=== PATIENT | female | born 1985 | race Caucasian/White ===

== ENCOUNTER 2018-05-05 18:13 | Emergency (ER) | payer OTHER, MEDICAID, SELFPAY ==
--- NOTE | 2018-05-05 18:23 | ED_ITS ---
HPI - General Adult General Chief complaint: Abdominal Pain Stated complaint: states sharp pain in right flank Time Seen by Provider: 05/05/18 18:22 Source: patient Mode of arrival: ambulatory Limitations: no limitations History of Present Illness HPI narrative: Patient is a 32-year-old female here for evaluation of right upper quadrant and right CVA tenderness. She states that it started a couple days ago. Has worsened over the past couple days. Does get worse with palpation. Does not seem to change with eating or bowel movements or urination. She has never had a kidney stone before. No rashes. No fevers. Has no dysuria. Is nauseous but no vomiting. Related Data Previous Rx's Medication Instructions Recorded promethazine 25 mg PO Q4-6H PRN #10 tab 05/05/18 sulfamethoxazole-trimethoprim 1 tab PO BID #28 tab 05/05/18 [Bactrim DS] Allergies Allergy/AdvReac Type Severity Reaction Status Date / Time No Known Drug Allergies Allergy Verified 05/05/18 18:42 Review of Systems Constitutional Denies fever(s) and Denies headache(s) ENT Ears, Nose, Mouth, and Throat: Denies headache(s) Cardiovascular Denies chest pain and Denies dyspnea Respiratory Denies dyspnea Gastrointestinal Gastrointestinal: Reports abdominal pain, Denies change in bowel habits, Denies change in stool character, Denies constipation, Denies diarrhea, Reports nausea and Denies vomiting Genitourinary Denies dysuria and Denies vaginal discharge Musculoskeletal Denies myalgias and Denies arthralgias Integumentary/Breasts Denies rash Neurologic Denies headache(s) Hematologic/Lymphatic Comments: Not on anticoagulation COUNTS INCLUDE 234 BEDS AT THE [facility] Medical History H/O: hysterectomy (Acute) Healthy adult (Acute) Surgical History Status post dilation and curettage (07/06/15) Social History Smoking Status: Current every day smoker Exam Initial Vital Signs Initial Vital Signs: Vital Signs Temperature 98.6 F 05/05/18 18:25 Pulse Rate 82 05/05/18 18:25 Respiratory Rate 18 05/05/18 18:25 Blood Pressure 149/80 H 05/05/18 18:25 Pulse Oximetry 100 05/05/18 18:25 Const General: cooperative, healthy appearing, comfortable, well developed, well groomed and No acute distress Orientation: alert, awake and oriented x3 HENMT Head: normal to inspection and normocephalic Resp Effort & Inspection: normal respiratory effort and able to speak in complete sentences Cardio Rate: regular rate Rhythm: regular rhythm GI Inspection: non-distended Palpation: soft, No firm and tender (Right upper quadrant.) Back/Spine/Pelvis Back: CVA tenderness right Skin Lesions: no lesions Rashes: no rashes Neuro General: alert and oriented x3 Cognition: normal cognition Speech: speech normal Extrem General: normal to inspection and capillary refill normal Psych Appearance: grossly normal and well kempt Course Orders Ordered: ED Orders 05/05/18 18:35 Urine Microscopic Stat 05/05/18 18:39 US abdomen complete Stat 05/05/18 18:45 Complete Blood Count AUTO DIFF Stat Comprehensive Metabolic Panel Stat Lipase Stat Discontinued Medications Ondansetron HCl (Zofran) 4 mg IV NOW ONE Stop: 05/05/18 18:40 Last Admin: 05/05/18 18:53 Dose: 4 mg Trimethoprim/Sulfamethoxazole (Bactrim Ds) 1 tab PO NOW ONE Stop: 05/05/18 20:19 Last Admin: 05/05/18 20:24 Dose: 1 tab Vital Signs - 8 hr 05/05/18 18:25 Temperature 98.6 F Pulse Rate 82 Respiratory Rate 18 Blood Pressure 149/80 H Pulse Oximetry 100 Medical Decision Making Lab Data Lab results reviewed: Yes I reviewed the patient's lab results. Result diagrams: 05/05/18 18:45 05/05/18 18:45 Lab Results 05/05/18 05/05/18 05/05/18 Range/Units 18:35 18:45 18:45 WBC 8.9 (4.5-11.0) X10^3/uL RBC 4.78 (4.0-5.2) X10^6/uL Hgb 14.4 (12.0-16.0) g/dL Hct 41.8 (36-46) % MCV 87.3 (80-100) fL MCH 30.1 (26-34) PG MCHC 34.5 (30-36) % RDW 13.3 (11.6-14.8) % Plt Count 172 (150-400) X10^3/uL Neut % (Auto) 65.6 (50-75) % Lymph % (Auto) 25.6 (25-40) % [place] % (Auto) 6.0 (3-14) % Eos % (Auto) 2.1 (2-4) % Baso % (Auto) 0.7 (0-2) % Neut # (Auto) 5900 (8511-7986) /uL Sodium 144 (137-145) mmol/L Potassium 3.7 (3.4-5.1) mmol/L Chloride 104 (98-107) mmol/L Carbon Dioxide 27 (22-32) mmol/L BUN 13 (7-17) mg/dL Creatinine 0.70 (0.52-1.04) mg/dL Estimated GFR > 60.0 (>60) mL/min BUN/Creatinine Ratio 18.6 (6-22) Glucose 96 (70-100) mg/dL Calcium 9.7 (8.4-10.2) mg/dL Total Bilirubin 0.2 (0.2-1.3) mg/dL AST 22 (14-36) IU/L ALT 34 (9-52) IU/L Alkaline Phosphatase 70 (38-126) U/L Total Protein 8.0 (6.3-8.2) g/dL Albumin 4.8 (3.5-5.0) g/dL Globulin 3.2 (1.7-4.1) g/dL Albumin/Globulin Ratio 1.5 (1.0-2.8) Lipase 62 (23-300) U/L Urine RBC 1-5/hpf (0-5/HPF) Urine WBC 5-10/hpf H (0-5/HPF) Ur Squamous Epith Cells 1-5 /hpf Amorphous Sediment 1+ Urine Bacteria Moderate (10-30) H (None) Urine Mucus 1+ H (Negative) Ur Culture Indicated? Specimen cultured Micro UA Comment Not Reportable Urine Dip Bedside Urine Glucose Negative Bedside Urine Bilirubin - Negative Bedside Urine Ketone - Negative Urine Specific [place] 1.025 Bedside Urine Occult Blood + Bedside Urine pH 6.0 Bedside Urine Protein +/- 15 Bedside Urine Urobilinogen - Negative Bedside Urine Nitrite + Positive Bedside Urine Leukocytes - Negative Esterase Point of care testing: Urine Dip Bedside Urine Glucose Negative Bedside Urine Bilirubin - Negative Bedside Urine Ketone - Negative Urine Specific [place] 1.025 Bedside Urine Occult Blood + Bedside Urine pH 6.0 Bedside Urine Protein +/- 15 Bedside Urine Urobilinogen - Negative Bedside Urine Nitrite + Positive Bedside Urine Leukocytes - Negative Esterase Imaging Data US - abdomen: Radiologist's impression: [address] [id number] Ultrasound Report Signed Patient: Shy Lao LMR#: [id number] : 1985Acct:[id number] Age/Sex: 32 / FDate of Service: 05/05/18 Loc: ED Accession Number: [id number] Procedure: US abdomen complete Ordering Provider: David Villalba D.O. PROCEDURE: US ABDOMEN COMPLETE INDICATIONS: RIGHT UPPER QUADRANT PAIN TECHNIQUE: Real-time scanning was performed of the abdominal and retroperitoneal organs, with image documentation. COMPARISON: None. FINDINGS: Liver: Liver is normal in size and homogeneous in echotexture. Gallbladder: Gallbladder is sonographically normal. No gallstones. No gallbladder wall thickening. No pericholecystic fluid. No sonographic Weller sign. Biliary ducts: Intrahepatic bile ducts are non-dilated. Extrahepatic bile duct caliber measures 4.2 mm. Normal is 6-7 mm or less in diameter, or 10 mm or less post-cholecystectomy. Pancreas: Visualized portions of the pancreas are sonographically normal. Spleen: Spleen is normal in size and homogeneous in echotexture. Kidneys: Kidneys are normal in size and echotexture. Right kidney measures 13.3 cm long; left kidney measures 13.1 cm long. No hydronephrosis or nephrolithiasis. No solid masses. Aorta: Visualized aorta is normal in caliber at less than 3 cm. Iliacs: Proximal common iliac arteries are normal in caliber at less than 2.5 cm. IVC: Intrahepatic inferior vena cava is patent. Miscellaneous: No free abdominal fluid. IMPRESSION: Normal abdominal sonogram. Dictated by: Aimee Sheldon MD, PhD on 05/05/2018 at 20:06 [facility] Narrative Medical decision making narrative: Right upper quadrant ultrasound does not show any gallbladder pathology. LFTs and lipase unremarkable. No skin changes concerning for zoster. She reported only minimal relief with the Zofran of her nausea. She is not vomiting. She does have nitrite positive urine. Patient states that while she was she was on antibiotics for urinary tract infection. She was given her 1st dose of Bactrim here in the ER. Will treat for pyelo. I do not feel that she needs admitted to the hospital. She was given return precautions. She expressed understanding and agreement with plan. Discharge Plan Departure Patient Disposition: Home Clinical Impression: Pyelonephritis, Abdominal pain Instructions: DI for Kidney Infection Activity Restrictions/Additional Instructions: You were given your 1st dose of antibiotics here in the emergency department. Fill the prescription and start taking them as directed tomorrow 05/06. Return to the emergency department for any new or worsening symptoms Prescriptions: New sulfamethoxazole-trimethoprim [Bactrim DS] 800-160 mg tablet 1 tab PO BID Qty: 28 RF: 0 promethazine 25 mg tablet 25 mg PO Q4-6H PRN (Reason: nausea and vomiting) Qty: 10 RF: 0
[2018-05-05 18:25] VITALS: BP 149/80; PULSE 82; RESP 18; TEMP 37; O2SAT 100; BMI 29.6
--- NOTE | 2018-05-05 18:39 | DI.US.S_ITS ---
PROCEDURE: US ABDOMEN COMPLETE INDICATIONS: RIGHT UPPER QUADRANT PAIN TECHNIQUE: Real-time scanning was performed of the abdominal and retroperitoneal organs, with image documentation. COMPARISON: None. FINDINGS: Liver: Liver is normal in size and homogeneous in echotexture. Gallbladder: Gallbladder is sonographically normal. No gallstones. No gallbladder wall thickening. No pericholecystic fluid. No sonographic Weller sign. Biliary ducts: Intrahepatic bile ducts are non-dilated. Extrahepatic bile duct caliber measures 4.2 mm. Normal is 6-7 mm or less in diameter, or 10 mm or less post-cholecystectomy. Pancreas: Visualized portions of the pancreas are sonographically normal. Spleen: Spleen is normal in size and homogeneous in echotexture. Kidneys: Kidneys are normal in size and echotexture. Right kidney measures 13.3 cm long; left kidney measures 13.1 cm long. No hydronephrosis or nephrolithiasis. No solid masses. Aorta: Visualized aorta is normal in caliber at less than 3 cm. Iliacs: Proximal common iliac arteries are normal in caliber at less than 2.5 cm. IVC: Intrahepatic inferior vena cava is patent. Miscellaneous: No free abdominal fluid. IMPRESSION: Normal abdominal sonogram. Dictated by: Aimee Sheldon MD, PhD on 05/05/2018 at 20:06 Approved by: Aimee Sheldon MD, PhD on 05/05/2018 at 20:06
[2018-05-05] MEDS: ONDANSETRON 4 MG/2 ML INJ IV (18:53)
[2018-05-05 18:55] LABS: Add Manual Diff / Slide Review NO; Basophils Percent Auto 0.7 % (0-2); Eosinophils Percent Auto 2.1 % (2-4); Hematocrit 41.8 % (36-46); Hemoglobin 14.4 g/dL (12.0-16.0); Lymphocytes Percent Auto 25.6 % (25-40); Mean Corpuscular HGB Conc 34.5 % (30-36); Mean Corpuscular Hemoglobin 30.1 PG (26-34); Mean Corpuscular Volume 87.3 fL (80-100); Neutrophils Absolute Auto 5900 /uL (3000-5900); Neutrophils Percent Auto 65.6 % (50-75); Platelet Count 172 X10^3/uL (150-400); Red Blood Cell Count 4.78 X10^6/uL (4.0-5.2); Red Cell Distribution Width 13.3 % (11.6-14.8); White Blood Cell Count 8.9 X10^3/uL (4.5-11.0)
[2018-05-05 18:55] LABS: Amorphous Sediment Urine 1+; Bacteria Urine Moderate (10-30); Mucus Urine 1+ (Negative); RBC Urine 1-5/HPF (0-5/HPF); Squamous Epithelial Cell Urine 1-5 /HPF; WBC Urine 5-10/HPF (0-5/HPF)
[2018-05-05 18:56] LABS: Culture Indicated Urine Specimen Cultured
[2018-05-05 19:07] LABS: Alanine Aminotransferase 34 IU/L (9-52); Albumin 4.8 g/dL (3.5-5.0); Albumin Globulin Ratio 1.5 (1.0-2.8); Alkaline Phosphatase 70 U/L (38-126); Aspartate Aminotransferase 22 IU/L (14-36); BUN Creatinine Ratio 18.6 (6-22); Bilirubin Total 0.2 mg/dL (0.2-1.3); Blood Urea Nitrogen 13 mg/dL (7-17); Calcium 9.7 mg/dL (8.4-10.2); Carbon Dioxide 27 mmol/L (22-32); Chloride 104 mmol/L (98-107); Estimated Glomerular Filt Rate > 60.0 mL/min (>60); Globulin 3.2 g/dL (1.7-4.1); Glucose 96 mg/dL (70-100); HEMOLYSIS < 15 (0-50); Lipase 62 U/L (23-300); Potassium 3.7 mmol/L (3.4-5.1); Sodium 144 mmol/L (137-145)
[2018-05-05] MEDS: TRIMETH/SULFA 160/800 (DS) TABLET 1 TAB PO (20:24)
[2018-05-05 20:27] VITALS: BP 124/72; PULSE 72; RESP 20; O2SAT 100
== END 2018-05-05 20:44 | disposition home or self-care (01) ==
PROVIDERS: Emergency Provider Emergency Medicine
DX: N12 Tubulo-interstitial nephritis, not specified as acute or chronic (principal); R10.9 Unspecified abdominal pain
CPT/HCPCS: 36591; 76700; 80053; 81003; 81015; 83690; 85025; 87077; 87086; 87186; 96374; 99283; 99284; J2405

== ENCOUNTER 2018-05-14 17:27 | Emergency (ER) | payer OTHER, MEDICAID, SELFPAY ==
[2018-05-14 17:35] VITALS: BP 129/89; PULSE 94; RESP 18; TEMP 36.6; O2SAT 98; BMI 29.2
--- NOTE | 2018-05-14 18:13 | ED_ITS ---
HPI - Nausea/Vomiting/Diarrhea <ERNESTO MartinezBC - Last Filed: 05/14/18 21:12> General Chief complaint: Nausea/Vomiting/Diarrhea Stated complaint: Fever, vomiting, weakness Time Seen by Provider: 05/14/18 17:46 Source: patient Mode of arrival: ambulatory Limitations: no limitations History of Present Illness HPI Narrative: Patient is a 32-year-old female current everyday smoker who presents with a chief complaint of nausea vomiting diarrhea that started 4 days ago. She was seen at this facility on 05/05 and started on Bactrim for pyelonephritis. She states she felt improved from that, but she and her daughter have been sick for the past several days. She denies any fever, denies any flank pain or abdominal pain. She denies possibility of . She denies dysuria, urgency or frequency. She denies any cough congestion or shortness of breath. She denies any blood in her vomit or stool. She states her last diarrhea this morning. She has been using Imodium on and off. Related Data Previous Rx's Medication Instructions Recorded promethazine 25 mg PO Q4-6H PRN #10 tab 05/05/18 sulfamethoxazole-trimethoprim 1 tab PO BID #28 tab 05/05/18 [Bactrim DS] ondansetron 4 mg PO TID-QID PRN #20 tab 05/14/18 Allergies Allergy/AdvReac Type Severity Reaction Status Date / Time No Known Drug Allergies Allergy Verified 05/14/18 17:33 Review of Systems <ERNESTO Martinez - Last Filed: 05/14/18 21:12> Review of Systems GENERAL: Denies chills, fatigue, malaise, fever, sweats. HEENT: Denies sinus pain, ear pain, sore throat, difficulty swallowing, dizziness. RESPIRATORY: Denies dyspnea, cough, wheezing, hemoptysis, sputum. CARDIOVASCULAR: Denies chest pain, palpitations, orthopnea, edema, GASTROINTESTINAL: See HPI : Denies dysuria, frequency, incontinence, hematuria, urinary retention. MUSCULOSKELETAL: denies weakness, joint pain, or bony pain SKIN: Denies rash, skin lesions, or other NEUROLOGIC: Denies weakness, headache, numbness, change in speech, confusion, seizures, incoordination. PSYCHIATRIC: No concerning psychosocial issues. 12 point review of systems is negative except for those stated above Exam <NICHOL Martinez - Last Filed: 05/14/18 21:12> Narrative Exam Narrative: GENERAL: This is a well-nourished, well-developed patient, no acute distress HEAD: Atraumatic. Normocephalic. No temporal or scalp tenderness. EYES: Pupils equal round and reactive. Extraocular motions intact. No scleral icterus. No injection or drainage. ENT: Nose without bleeding, purulent drainage or septal hematoma. Throat without erythema, tonsillar hypertrophy or exudate. Uvula midline. Airway patent. NECK: Trachea midline. No JVD or lymphadenopathy. Supple, nontender, no meningeal signs. CARDIOVASCULAR: Regular rate and rhythm without murmurs, gallops, or rubs. RESPIRATORY: Clear to auscultation. Breath sounds equal bilaterally. No wheezes , rales, or rhonchi. No cough on exam. No increased respiratory effort or accessory muscle use. GASTROINTESTINAL: Abdomen soft, non-tender, nondistended. No hepato-splenomegaly , or palpable masses. No guarding. Active bowel sounds all 4 quadrants. No palpable pulsatile mass. No guarding noted throughout exam. EXTREMITIES: No clubbing, cyanosis, or edema. No joint tenderness, effusion, or edema noted. BACK: Nontender without deformity or crepitance. No flank tenderness. NEURO: AOx3. SKIN: No rash or erythema. Initial Vital Signs Initial Vital Signs: Vital Signs Temperature 97.8 F 05/14/18 17:35 Pulse Rate 94 H 05/14/18 17:35 Respiratory Rate 18 05/14/18 17:35 Blood Pressure 129/89 05/14/18 17:35 Pulse Oximetry 98 05/14/18 17:35 <David Villalba DO - Last Filed: 05/14/18 22:10> Initial Vital Signs Initial Vital Signs: Vital Signs Temperature 97.8 F 05/14/18 17:35 Pulse Rate 94 H 05/14/18 17:35 Respiratory Rate 18 05/14/18 17:35 Blood Pressure 129/89 05/14/18 17:35 Pulse Oximetry 98 05/14/18 17:35 Course <NICHOL Martinez - Last Filed: 05/14/18 21:12> Course Narrative: A checked on the patient several times throughout her stay in the emergency department. She remained hemodynamically stable, afebrile. Orders Ordered: ED Orders 05/14/18 18:14 Complete Blood Count AUTO DIFF Stat Comprehensive Metabolic Panel Stat Lactate (Lactic Acid) Stat Magnesium Stat 05/14/18 19:35 Urine Microscopic Stat Discontinued Medications Sodium Chloride (Normal Saline 0.9%) 1,000 mls @ 1,000 mls/hr IV BOLUS ONE Stop: 05/14/18 19:04 Last Infusion: 05/14/18 19:28 Dose: 0 mls/hr Admin: 05/14/18 18:26 Dose: 1,000 mls/hr Sodium Chloride (Normal Saline 0.9%) 1,000 mls @ 1,000 mls/hr IV BOLUS ONE Stop: 05/14/18 20:10 Last Admin: 05/14/18 21:25 Dose: Not Given Sodium Chloride (Normal Saline 0.9%) 1,000 mls @ 1,000 mls/hr IV BOLUS ONE Stop: 05/14/18 20:14 Last Infusion: 05/14/18 20:37 Dose: 0 mls/hr Admin: 05/14/18 19:28 Dose: 1,000 mls/hr Ondansetron HCl (Zofran) 4 mg IV NOW ONE Stop: 05/14/18 18:06 Last Admin: 05/14/18 18:26 Dose: 4 mg Potassium Chloride (Potassium Chloride) 40 meq PO NOW ONE Stop: 05/14/18 19:17 Last Admin: 05/14/18 19:28 Dose: 40 meq Vital Signs - 8 hr 05/14/18 17:35 05/14/18 19:37 05/14/18 20:36 Temperature 97.8 F Pulse Rate 94 H 80 87 Respiratory Rate 18 16 16 Blood Pressure 129/89 Blood Pressure [Left Arm] 124/66 110/48 L Pulse Oximetry 98 98 98 05/14/18 21:14 Temperature Pulse Rate 73 Respiratory Rate 16 Blood Pressure Blood Pressure [Left Arm] 103/60 Pulse Oximetry 97 <David Villalba, - Last Filed: 05/14/18 22:10> Orders Ordered: ED Orders 05/14/18 18:14 Complete Blood Count AUTO DIFF Stat Comprehensive Metabolic Panel Stat Lactate (Lactic Acid) Stat Magnesium Stat 05/14/18 19:35 Urine Microscopic Stat Discontinued Medications Sodium Chloride (Normal Saline 0.9%) 1,000 mls @ 1,000 mls/hr IV BOLUS ONE Stop: 05/14/18 19:04 Last Infusion: 05/14/18 19:28 Dose: 0 mls/hr Admin: 05/14/18 18:26 Dose: 1,000 mls/hr Sodium Chloride (Normal Saline 0.9%) 1,000 mls @ 1,000 mls/hr IV BOLUS ONE Stop: 05/14/18 20:10 Last Admin: 05/14/18 21:25 Dose: Not Given Sodium Chloride (Normal Saline 0.9%) 1,000 mls @ 1,000 mls/hr IV BOLUS ONE Stop: 05/14/18 20:14 Last Infusion: 05/14/18 20:37 Dose: 0 mls/hr Admin: 05/14/18 19:28 Dose: 1,000 mls/hr Ondansetron HCl (Zofran) 4 mg IV NOW ONE Stop: 05/14/18 18:06 Last Admin: 05/14/18 18:26 Dose: 4 mg Potassium Chloride (Potassium Chloride) 40 meq PO NOW ONE Stop: 05/14/18 19:17 Last Admin: 05/14/18 19:28 Dose: 40 meq Vital Signs - 8 hr 05/14/18 17:35 05/14/18 19:37 05/14/18 20:36 Temperature 97.8 F Pulse Rate 94 H 80 87 Respiratory Rate 18 16 16 Blood Pressure 129/89 Blood Pressure [Left Arm] 124/66 110/48 L Pulse Oximetry 98 98 98 05/14/18 21:14 Temperature Pulse Rate 73 Respiratory Rate 16 Blood Pressure Blood Pressure [Left Arm] 103/60 Pulse Oximetry 97 MDM - Nausea/Vomiting/Diarrhea <NICHOL Martinez - Last Filed: 05/14/18 21:12> Lab Data Result diagrams: 05/14/18 18:14 05/14/18 18:14 Lab Results 05/14/18 05/14/18 05/14/18 Range/Units 18:14 18:14 18:14 WBC 3.7 L (4.5-11.0) X10^3/uL RBC 5.12 (4.0-5.2) X10^6/uL Hgb 15.3 (12.0-16.0) g/dL Hct 43.4 (36-46) % MCV 84.8 (80-100) fL MCH 29.8 (26-34) PG MCHC 35.2 (30-36) % RDW 13.1 (11.6-14.8) % Plt Count 148 L (150-400) X10^3/uL Neut % (Auto) 56.8 (50-75) % Lymph % (Auto) 30.3 (25-40) % [place] % (Auto) 11.2 (3-14) % Eos % (Auto) 1.3 L (2-4) % Baso % (Auto) 0.4 (0-2) % Neut # (Auto) 2100 (2384-8838) /uL Sodium 138 (137-145) mmol/L Potassium 3.3 L (3.4-5.1) mmol/L Chloride 102 (98-107) mmol/L Carbon Dioxide 24 (22-32) mmol/L BUN 19 H (7-17) mg/dL Creatinine 0.70 (0.52-1.04) mg/dL Estimated GFR > 60.0 (>60) mL/min BUN/Creatinine Ratio 27.1 H (6-22) Glucose 94 (70-100) mg/dL Lactate 0.7 (0.7-2.1) mmol/L Calcium 9.0 (8.4-10.2) mg/dL Magnesium 1.7 (1.6-2.3) mg/dL Total Bilirubin 0.4 (0.2-1.3) mg/dL AST 21 (14-36) IU/L ALT 31 (9-52) IU/L Alkaline Phosphatase 55 (38-126) U/L Total Protein 7.0 (6.3-8.2) g/dL Albumin 4.2 (3.5-5.0) g/dL Globulin 2.8 (1.7-4.1) g/dL Albumin/Globulin Ratio 1.5 (1.0-2.8) Urine Color Urine Appearance Urine pH Ur Specific [place] Urine Protein Urine Glucose (UA) Urine Ketones Urine Occult Blood Urine Nitrate Urine Bilirubin Urine Urobilinogen Ur Leukocyte Esterase Urine RBC (0-5/HPF) Urine WBC (0-5/HPF) Ur Squamous Epith Cells Urine Bacteria (None) Urine Mucus (Negative) Ur Culture Indicated? Micro UA Comment 05/14/18 Range/Units 19:35 WBC (4.5-11.0) X10^3/uL RBC (4.0-5.2) X10^6/uL Hgb (12.0-16.0) g/dL Hct (36-46) % MCV (80-100) fL MCH (26-34) PG MCHC (30-36) % RDW (11.6-14.8) % Plt Count (150-400) X10^3/uL Neut % (Auto) (50-75) % Lymph % (Auto) (25-40) % [place] % (Auto) (3-14) % Eos % (Auto) (2-4) % Baso % (Auto) (0-2) % Neut # (Auto) (5617-6337) /uL Sodium (137-145) mmol/L Potassium (3.4-5.1) mmol/L Chloride (98-107) mmol/L Carbon Dioxide (22-32) mmol/L BUN (7-17) mg/dL Creatinine (0.52-1.04) mg/dL Estimated GFR (>60) mL/min BUN/Creatinine Ratio (6-22) Glucose (70-100) mg/dL Lactate (0.7-2.1) mmol/L Calcium (8.4-10.2) mg/dL Magnesium (1.6-2.3) mg/dL Total Bilirubin (0.2-1.3) mg/dL AST (14-36) IU/L ALT (9-52) IU/L Alkaline Phosphatase (38-126) U/L Total Protein (6.3-8.2) g/dL Albumin (3.5-5.0) g/dL Globulin (1.7-4.1) g/dL Albumin/Globulin Ratio (1.0-2.8) Urine Color Cancelled Urine Appearance Cancelled Urine pH Cancelled Ur Specific [place] Cancelled Urine Protein Cancelled Urine Glucose (UA) Cancelled Urine Ketones Cancelled Urine Occult Blood Cancelled Urine Nitrate Cancelled Urine Bilirubin Cancelled Urine Urobilinogen Cancelled Ur Leukocyte Esterase Cancelled Urine RBC 5-10/hpf H (0-5/HPF) Urine WBC 1-5/hpf (0-5/HPF) Ur Squamous Epith Cells 1-5 /hpf Urine Bacteria Occasional (0-1) D (None) Urine Mucus 2+ H (Negative) Ur Culture Indicated? Cult not indicated Micro UA Comment Not Reportable Urine Dip Bedside Urine Glucose Negative Bedside Urine Bilirubin +++ 4 Bedside Urine Ketone ++ 40 Urine Specific [place] 1.030 Bedside Urine Occult Blood +++ Bedside Urine pH 6.0 Bedside Urine Protein - Negative Bedside Urine Urobilinogen - Negative Bedside Urine Nitrite - Negative Bedside Urine Leukocytes - Negative Esterase MDM Narrative Medical decision making narrative: Patient is a 32-year-old female who presents with 4 days of nausea vomiting and diarrhea. She is being treated for pyelonephritis with Bactrim. She has not had any fever. We did a UA, which shows blood but is vastly improved since her visit previously this month. She had a CBC and CMP which were grossly within normal limits. She was slightly hypokalemic, so she was replaced in the emergency department. She had a normal lactate. This I do not believe that her nausea vomiting and diarrhea is related to her previous diagnosis of pyelonephritis. She of note did not vomit or have any episodes of diarrhea throughout her stay in the emergency department. Her exam was overall benign. I discussed at length follow up with her primary care provider and discussed return precautions with the with the keep down fluids or abdominal pain. She was able to keep down liquids and solids prior to discharge. <David Villalba, DO - Last Filed: 05/14/18 22:10> Lab Data Lab Results 05/14/18 05/14/18 05/14/18 Range/Units 18:14 18:14 18:14 WBC 3.7 L (4.5-11.0) X10^3/uL RBC 5.12 (4.0-5.2) X10^6/uL Hgb 15.3 (12.0-16.0) g/dL Hct 43.4 (36-46) % MCV 84.8 (80-100) fL MCH 29.8 (26-34) PG MCHC 35.2 (30-36) % RDW 13.1 (11.6-14.8) % Plt Count 148 L (150-400) X10^3/uL Neut % (Auto) 56.8 (50-75) % Lymph % (Auto) 30.3 (25-40) % [place] % (Auto) 11.2 (3-14) % Eos % (Auto) 1.3 L (2-4) % Baso % (Auto) 0.4 (0-2) % Neut # (Auto) 2100 (3349-1573) /uL Sodium 138 (137-145) mmol/L Potassium 3.3 L (3.4-5.1) mmol/L Chloride 102 (98-107) mmol/L Carbon Dioxide 24 (22-32) mmol/L BUN 19 H (7-17) mg/dL Creatinine 0.70 (0.52-1.04) mg/dL Estimated GFR > 60.0 (>60) mL/min BUN/Creatinine Ratio 27.1 H (6-22) Glucose 94 (70-100) mg/dL Lactate 0.7 (0.7-2.1) mmol/L Calcium 9.0 (8.4-10.2) mg/dL Magnesium 1.7 (1.6-2.3) mg/dL Total Bilirubin 0.4 (0.2-1.3) mg/dL AST 21 (14-36) IU/L ALT 31 (9-52) IU/L Alkaline Phosphatase 55 (38-126) U/L Total Protein 7.0 (6.3-8.2) g/dL Albumin 4.2 (3.5-5.0) g/dL Globulin 2.8 (1.7-4.1) g/dL Albumin/Globulin Ratio 1.5 (1.0-2.8) Urine Color Urine Appearance Urine pH Ur Specific [place] Urine Protein Urine Glucose (UA) Urine Ketones Urine Occult Blood Urine Nitrate Urine Bilirubin Urine Urobilinogen Ur Leukocyte Esterase Urine RBC (0-5/HPF) Urine WBC (0-5/HPF) Ur Squamous Epith Cells Urine Bacteria (None) Urine Mucus (Negative) Ur Culture Indicated? Micro UA Comment 05/14/18 Range/Units 19:35 WBC (4.5-11.0) X10^3/uL RBC (4.0-5.2) X10^6/uL Hgb (12.0-16.0) g/dL Hct (36-46) % MCV (80-100) fL MCH (26-34) PG MCHC (30-36) % RDW (11.6-14.8) % Plt Count (150-400) X10^3/uL Neut % (Auto) (50-75) % Lymph % (Auto) (25-40) % [place] % (Auto) (3-14) % Eos % (Auto) (2-4) % Baso % (Auto) (0-2) % Neut # (Auto) (0583-2465) /uL Sodium (137-145) mmol/L Potassium (3.4-5.1) mmol/L Chloride (98-107) mmol/L Carbon Dioxide (22-32) mmol/L BUN (7-17) mg/dL Creatinine (0.52-1.04) mg/dL Estimated GFR (>60) mL/min BUN/Creatinine Ratio (6-22) Glucose (70-100) mg/dL Lactate (0.7-2.1) mmol/L Calcium (8.4-10.2) mg/dL Magnesium (1.6-2.3) mg/dL Total Bilirubin (0.2-1.3) mg/dL AST (14-36) IU/L ALT (9-52) IU/L Alkaline Phosphatase (38-126) U/L Total Protein (6.3-8.2) g/dL Albumin (3.5-5.0) g/dL Globulin (1.7-4.1) g/dL Albumin/Globulin Ratio (1.0-2.8) Urine Color Cancelled Urine Appearance Cancelled Urine pH Cancelled Ur Specific [place] Cancelled Urine Protein Cancelled Urine Glucose (UA) Cancelled Urine Ketones Cancelled Urine Occult Blood Cancelled Urine Nitrate Cancelled Urine Bilirubin Cancelled Urine Urobilinogen Cancelled Ur Leukocyte Esterase Cancelled Urine RBC 5-10/hpf H (0-5/HPF) Urine WBC 1-5/hpf (0-5/HPF) Ur Squamous Epith Cells 1-5 /hpf Urine Bacteria Occasional (0-1) D (None) Urine Mucus 2+ H (Negative) Ur Culture Indicated? Cult not indicated Micro UA Comment Not Reportable Urine Dip Bedside Urine Glucose Negative Bedside Urine Bilirubin +++ 4 Bedside Urine Ketone ++ 40 Urine Specific [place] 1.030 Bedside Urine Occult Blood +++ Bedside Urine pH 6.0 Bedside Urine Protein - Negative Bedside Urine Urobilinogen - Negative Bedside Urine Nitrite - Negative Bedside Urine Leukocytes - Negative Esterase Discharge Plan Departure Patient Disposition: Home Clinical Impression: Nausea & vomiting Discharge Date/Time: 05/14/18 21:20 Interventions: ED Discharge Assessment Last Done: 05/14/18 21:20 Instructions: DI for Nausea -- Adult, DI for Vomiting -- Adult Activity Restrictions/Additional Instructions: I have given you medication for nausea. This should not be sedating. Please push fluids come back to the emergency department for any inability keep down liquids, severe abdominal pain or any acute concerns. Please follow-up with primary care provider if needed. Prescriptions: New ondansetron 4 mg tablet,disintegrating 4 mg PO TID-QID PRN (Reason: nausea and vomiting) Qty: 20 RF: 0 No Action sulfamethoxazole-trimethoprim [Bactrim DS] 800-160 mg tablet 1 tab PO BID Qty: 28 RF: 0 promethazine 25 mg tablet 25 mg PO Q4-6H PRN (Reason: nausea and vomiting) Qty: 10 RF: 0 <David Villalba DO - Last Filed: 05/14/18 22:10> [facility] ED Attending Tereza Attestation: I was available for consultation during this patient's emergency department encounter
[2018-05-14 18:26] LABS: Add Manual Diff / Slide Review NO; Basophils Percent Auto 0.4 % (0-2); Eosinophils Percent Auto 1.3 % (2-4); Hematocrit 43.4 % (36-46); Hemoglobin 15.3 g/dL (12.0-16.0); Lymphocytes Percent Auto 30.3 % (25-40); Mean Corpuscular HGB Conc 35.2 % (30-36); Mean Corpuscular Hemoglobin 29.8 PG (26-34); Mean Corpuscular Volume 84.8 fL (80-100); Monocytes Percent Auto 11.2 % (3-14); Neutrophils Absolute Auto 2100 /uL (1500-7000); Neutrophils Percent Auto 56.8 % (50-75); Platelet Count 148 X10^3/uL (150-400); Red Blood Cell Count 5.12 X10^6/uL (4.0-5.2); Red Cell Distribution Width 13.1 % (11.6-14.8); White Blood Cell Count 3.7 X10^3/uL (4.5-11.0)
[2018-05-14] MEDS: SODIUM CHLORIDE 0.9% 1,000 ML 1000 ML IV ×2 (18:26→19:28)
[2018-05-14] MEDS: ONDANSETRON 4 MG/2 ML INJ IV (18:26)
[2018-05-14 18:33] LABS: Lactate (Lactic Acid) 0.7 mmol/L (0.7-2.1)
[2018-05-14 18:34] LABS: Alanine Aminotransferase 31 IU/L (9-52); Albumin 4.2 g/dL (3.5-5.0); Albumin Globulin Ratio 1.5 (1.0-2.8); Alkaline Phosphatase 55 U/L (38-126); Aspartate Aminotransferase 21 IU/L (14-36); BUN Creatinine Ratio 27.1 (6-22); Bilirubin Total 0.4 mg/dL (0.2-1.3); Blood Urea Nitrogen 19 mg/dL (7-17); Carbon Dioxide 24 mmol/L (22-32); Chloride 102 mmol/L (98-107); Estimated Glomerular Filt Rate > 60.0 mL/min (>60); Globulin 2.8 g/dL (1.7-4.1); Glucose 94 mg/dL (70-100); HEMOLYSIS < 15 (0-50); Magnesium 1.7 mg/dL (1.6-2.3); Potassium 3.3 mmol/L (3.4-5.1); Sodium 138 mmol/L (137-145)
[2018-05-14] MEDS: POTASSIUM CHLORIDE 20 MEQ/15 ML UDC 40 MEQ PO (19:28)
[2018-05-14 19:37] VITALS: BP 124/66; PULSE 80; RESP 16; O2SAT 98
[2018-05-14 20:29] LABS: Bacteria Urine Occasional (0-1); Culture Indicated Urine Cult Not Indicated; Mucus Urine 2+ (Negative); RBC Urine 5-10/HPF (0-5/HPF); Squamous Epithelial Cell Urine 1-5 /HPF; WBC Urine 1-5/HPF (0-5/HPF)
[2018-05-14 20:36] VITALS: BP 110/48; PULSE 87; RESP 16; O2SAT 98
--- NOTE | 2018-05-14 20:38 | PC.NURSE ---
Pt completed 2 Liters of NS infusion. Denies nausea at this time. Able to tolerate sips of juice and Kcl liquid. Denies abd pain, abd soft and non-tender. Pt voided twice while in ER.
[2018-05-14 21:14] VITALS: BP 103/60; PULSE 73; RESP 16; O2SAT 97
== END 2018-05-14 21:20 | disposition home or self-care (01) ==
PROVIDERS: Emergency Provider Nurse Practitioner Family
DX: R11.2 Nausea with vomiting, unspecified (principal)
CPT/HCPCS: 36591; 80053; 81003; 81015; 83605; 83735; 85025; 96361; 96374; 99283; 99284; J2405

== ENCOUNTER 2018-06-30 18:35 | Emergency (ER) | payer OTHER, MEDICAID, SELFPAY ==
[2018-06-30 18:38] VITALS: BP 128/84; PULSE 90; RESP 20; TEMP 36.1; O2SAT 100; BMI 29.6
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
[2018-06-30] MEDS: CYCLOBENZAPRINE 10 MG PREPACK 1 BOTTLE MISC (20:42)
[2018-06-30] MEDS: KETOROLAC 60 MG/2 ML VIAL 30 MG IM (20:42)
[2018-06-30 20:56] VITALS: BP 118/75; PULSE 87; RESP 14; O2SAT 98
== END 2018-06-30 20:57 | disposition home or self-care (01) ==
PROVIDERS: Emergency Provider Emergency Medicine
DX: M54.6 Pain in thoracic spine (principal)
CPT/HCPCS: 96372; 99282; 99283; J1885

== ENCOUNTER 2023-02-27 12:54 | Emergency (ER) | payer OTHER, SELFPAY ==
[2023-02-27 13:11] VITALS: BP 174/80; PULSE 78; RESP 16; TEMP 36.7; O2SAT 100; BMI 31.9
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
--- NOTE | 2023-02-27 15:11 | ED.NECK ---
HPI - Neck Pain/Injury General Chief Complaint: Trauma Stated Complaint: injured at work box fell on head Time Seen by Provider: 02/27/23 15:04 Mode of arrival: Ambulatory History of Present Illness HPI Narrative: 37-year-old female presents for neck pain since yesterday. Patient states that a box with rolls of labels in it fell on her head at work yesterday. Denies loss of consciousness, denies use of blood thinners. Patient woke up today with neck pain extending all the way down to her lumbar spine. Worse with movement. Ibuprofen taken prior to arrival. Related Data Previous Rx's Medication Instructions Recorded promethazine 25 mg tablet 25 mg PO Q4-6H PRN nausea and 05/05/18 vomiting #10 tabs sulfamethoxazole 800 1 tab PO BID #28 tabs 05/05/18 mg-trimethoprim 160 mg tablet (Bactrim DS) ondansetron 4 mg disintegrating 4 mg PO TID-QID PRN nausea and 05/14/18 tablet vomiting #20 tabs cyclobenzaprine 5 mg tablet 5 mg PO TID PRN muscle spasm #10 06/30/18 tabs cyclobenzaprine 10 mg tablet 10 mg PO TID PRN muscle spasm #30 02/27/23 tabs Allergies Allergy/AdvReac Type Severity Reaction Status Date / Time No Known Drug Allergies Allergy Verified 02/27/23 13:16 Review of Systems Review of Systems Narrative: CONSTITUTIONAL- Denies: fever, chills, fatigue HEENT- Denies: sore throat, nosebleed, vision changes RESPIRATORY- Denies: shortness of breath, cough, wheezing CARDIAC- Denies: chest pain, edema, orthopnea GI- Denies: abdominal pain, nausea, vomiting, constipation, diarrhea - Denies: frequency, dysuria, hematuria, flank pain MSK-reports: Cervical pain, thoracic pain, lumbar pain Denies: extremity pain, extremity swelling, joint pain, joint swelling SKIN- Denies: rash, itching, burn, swelling NEUROLOGICAL- Denies: headache, numbness, weakness, dizziness PSYCHIATRIC- Denies: anxiety, depression, suicidal ideation, homicidal ideation Patient History Medical History (Updated 02/27/23 @ 15:13 by Lauren Mobley MD) Healthy adult Surgical History (Updated 05/05/18 @ 19:32 by David Lanker, DO) H/O: hysterectomy Status post dilation and curettage (07/06/15) Social History Smoking Status: Current every day smoker Smoking Status: Current every day smoker alcohol intake frequency: a few times a week Substance Use Type: does not use Exam Initial Vital Signs Initial Vital Signs: Vital Signs Temperature 98.1 F 02/27/23 13:11 Pulse Rate 78 02/27/23 13:11 Respiratory Rate 16 02/27/23 13:11 Blood Pressure 174/80 H 02/27/23 13:11 Pulse Oximetry 100 02/27/23 13:11 Oxygen Delivery Method Room Air 02/27/23 13:11 Const: Awake, alert, no acute distress, nontoxic appearing Eyes: PERRL, EOMI, conjunctiva normal ENT: Atraumatic, dentition normal, mucous membranes moist Cardiac: regular rate, regular rhythm RESP: unlabored, clear bilaterally, no wheezing GI: Atraumatic, soft, nontender, nondistended, no rebound, no guarding MSK: Atraumatic, full range of motion, pulses equal, 5/5 muscle strength all extremities Skin: Warm, Dry, intact, no rashes Neuro: AO x3, CN II-XII grossly intact, moves all extremities Psych: affect normal, mood normal, not suicidal, not homicidal Course Course Course Narrative: Neck and back pain after box fell on head. Neurovascularly intact, patient has no midline tenderness, no step-offs, no indication for CT imaging at this time. X-rays ordered in triage, these were negative for acute findings. Patient counseled to take Tylenol and Motrin as needed for pain, she may apply heat or ice as desired for comfort. Short course of muscle relaxers sent to pharmacy. ED return precautions discussed at bedside. Patient expressed understanding of the plan and is in agreement at this time. All questions answered at the time of discharge. Orders Ordered: ED Orders 02/27/23 13:18 XR soft tissue neck Stat Discontinued Medications Ketorolac Tromethamine (Ketorolac 30 Mg/Ml Vial) 30 mg IM NOW ONE Stop: 02/27/23 15:12 Last Admin: 02/27/23 15:20 Dose: 30 mg Documented By: [facility] Lidocaine (Lidocaine Patch 1 Each Adh..Patch) 1 each TOP NOW ONE Stop: 02/27/23 15:12 Last Admin: 02/27/23 15:20 Dose: 1 each Documented By: [facility] Vital Signs Vital signs: Vital Signs - 8 hr 02/27/23 13:11 02/27/23 15:30 Temperature 98.1 F 98.1 F Pulse Rate 78 78 Respiratory Rate 16 14 Blood Pressure 174/80 H 122/78 Pulse Oximetry 100 99 Oxygen Delivery Method Room Air Room Air Discharge Plan Departure Patient Disposition: Home Clinical Impression: Neck muscle strain Instructions: DI for Cervical Muscle Strain Prescriptions: New cyclobenzaprine 10 mg tablet 10 mg PO TID PRN (Reason: muscle spasm) Qty: 30 0RF No Action ondansetron 4 mg tablet,disintegrating 4 mg PO TID-QID PRN (Reason: nausea and vomiting) Qty: 20 0RF cyclobenzaprine 5 mg tablet 5 mg PO TID PRN (Reason: muscle spasm) Qty: 10 0RF sulfamethoxazole-trimethoprim [Bactrim DS] 800-160 mg tablet 1 tab PO BID Qty: 28 0RF promethazine 25 mg tablet 25 mg PO Q4-6H PRN (Reason: nausea and vomiting) Qty: 10 0RF Referrals: Miscellaneous,Doctor, MD [Primary Care Provider] - Stand Alone Forms: Patient Portal/API, Work Release Note
[2023-02-27] MEDS: LIDOCAINE PATCH 1 EACH ADH..PATCH TOP (15:20)
[2023-02-27] MEDS: KETOROLAC 30 MG/ML VIAL IM (15:20)
[2023-02-27 15:30] VITALS: BP 122/78; PULSE 78; RESP 14; TEMP 36.7; O2SAT 99
== END 2023-02-27 15:32 | disposition home or self-care (01) ==
PROVIDERS: Emergency Provider Emergency Medicine
DX: S16.1XXA Strain of muscle, fascia and tendon at neck level, initial encounter (principal); W22.8XXA Striking against or struck by other objects, initial encounter; Y99.0 Civilian activity done for income or pay
CPT/HCPCS: 70360; 96372; 99283; 99284; J1885

== ENCOUNTER 2023-09-26 15:56 | Emergency (ER) | payer OTHER, SELFPAY ==
[2023-09-26] VITALS (9 sets, daily range): BP systolic 131–201; BP diastolic 82–111; PULSE 67–98; RESP 15–21; TEMP 36.5; O2SAT 93–100; BMI 33.5
--- NOTE | 2023-09-26 16:08 | DI.RAD.S_ITS ---
PROCEDURE: XR CHEST 1V INDICATIONS: chest pain TECHNIQUE: One view of the chest was acquired. COMPARISON: None. FINDINGS: Surgical changes and devices: None. Lungs and pleura: On this semiupright portable chest examination, no large pneumothorax or large pleural effusions are seen. No focal infiltrates are seen. Mediastinum: Mediastinal contours appear normal. Heart size is normal. Bones and chest wall: No suspicious bony lesions. Overlying soft tissues appear unremarkable. IMPRESSION: No acute cardiopulmonary abnormality is seen. Dictated by: Juanito Rashid M.D. on 09/26/2023 at 15:40 Approved by: Juanito Rashid M.D. on 09/26/2023 at 15:40
[2023-09-26 16:44] LABS: Add Manual Diff / Slide Review NO; Basophils Absolute Auto 0 /uL (0-100); Basophils Percent Auto 0.4 % (0-2); Eosinophils Absolute Auto 200 /uL (0-450); Eosinophils Percent Auto 1.5 % (2-4); Hematocrit 40.8 % (36-46); Hemoglobin 14.6 g/dL (12.0-16.0); Lymphocytes Absolute Auto 2400 /uL (1100-4500); Lymphocytes Percent Auto 23.1 % (25-40); Mean Corpuscular HGB Conc 35.8 % (30-36); Mean Corpuscular Hemoglobin 31.8 PG (26-34); Monocytes Absolute Auto 500 /uL (0-900); Neutrophils Absolute Auto 7300 /uL (1500-7000); Platelet Count 192 X10^3/uL (150-400); Red Blood Cell Count 4.58 X10^6/uL (4.0-5.2); Red Cell Distribution Width 12.8 % (11.6-14.8); White Blood Cell Count 10.4 X10^3/uL (4.5-11.0)
[2023-09-26 16:48] LABS: INR 1.1 (0.9-1.3); Prothrombin Time 12.1 SECONDS (9.4-12.5)
[2023-09-26 16:51] LABS: PTT Partial Thromboplastin Tim 36 SECONDS (25.1-36.5)
[2023-09-26 17:00] LABS: Alanine Aminotransferase 48 IU/L (<35); Albumin 5.1 g/dL (3.5-5.0); Albumin Globulin Ratio 1.7 (1.0-2.8); Alkaline Phosphatase 81 U/L (38-126); Aspartate Aminotransferase 37 IU/L (14-36); BUN Creatinine Ratio 21.2 (6-22); Bilirubin Total 0.5 mg/dL (0.2-1.3); Blood Urea Nitrogen 14 mg/dL (7-17); Calcium 9.7 mg/dL (8.4-10.2); Carbon Dioxide 23 mmol/L (22-32); Chloride 107 mmol/L (98-107); Creatine Kinase 85 U/L (30-135); Estimated Glomerular Filt Rate > 60 mL/min (>60); Glucose 99 mg/dL (70-100); HEMOLYSIS 18 (0-50); Lipase 76 U/L (23-300); Magnesium 1.9 mg/dL (1.6-2.3); Potassium 3.5 mmol/L (3.4-5.1); Sodium 139 mmol/L (137-145); Total Protein 8.1 g/dL (6.3-8.2)
[2023-09-26 17:12] LABS: Troponin I < 0.012 ng/mL (0.01-0.034)
--- NOTE | 2023-09-26 18:11 | ED_ITS ---
HPI - Chest Pain General Chief Complaint: Chest Pain Stated Complaint: high blood pressure 159/106 187/102 Time Seen by Provider: 09/26/23 17:53 Source: patient Mode of arrival: Ambulatory Limitations: no limitations History of Present Illness HPI narrative: Patient is a 38-year-old female. She states 2 days ago while at work she had developed a headache. She does have history of migraines. She states that normally [id number] medications work for her but this time it did not seem to be working. She took her blood pressure home and it was elevated. She took a dose of her boyfriend's blood pressure medications. She stated that she tried to return to work today in was still having a slight headache on the right side of her head that she states is close to be coming by migraine. She was also having some left arm and left shoulder discomfort. No chest pain. No shortness of breath. No vision changes. No fevers. Lower extremity swelling. Related Data Home Medications Medication Instructions Recorded Confirmed No Known Home Medications 09/26/23 09/26/23 Allergies Allergy/AdvReac Type Severity Reaction Status Date / Time No Known Drug Allergies Allergy Verified 09/26/23 16:09 Review of Systems Review of Systems ROS Unobtainable: All systems reviewed & are unremarkable except as noted in HPI and below Patient History Medical History Healthy adult Surgical History (Updated 05/05/18 @ 19:32 by David Villalba DO) H/O: hysterectomy Status post dilation and curettage (07/06/15) Social History Smoking Status: Current every day smoker Smoking Status: Current every day smoker alcohol intake frequency: a few times a week Substance Use Type: does not use Exam Initial Vital Signs Initial Vital Signs: Vital Signs Temperature 97.7 F 09/26/23 16:02 Pulse Rate 98 H 09/26/23 16:02 Respiratory Rate 16 09/26/23 16:02 Blood Pressure 201/111 H 09/26/23 16:02 Pulse Oximetry 100 09/26/23 16:02 Oxygen Delivery Method Room Air 09/26/23 16:02 HENMT Head: normal to inspection and normocephalic Resp Effort & Inspection: normal respiratory effort Auscultation: clear to auscultation bilaterally Cardio Rate: regular rate Rhythm: regular rhythm Neuro General: patient alert, patient awake, patient oriented x3 and moves all extremities Cognition: normal cognition Speech: speech normal Extrem General: No edema Course Orders Ordered: ED Orders 09/26/23 16:08 XR chest 1V Stat EKG-12 Lead Stat 09/26/23 16:25 Complete Blood Count AUTO DIFF Stat Comprehensive Metabolic Panel Stat Lipase Stat Magnesium Stat PTT Partial Thromboplastin Osmani Stat Prothrombin Time INR Stat Troponin & CK Cardiac Panel Stat 09/26/23 17:45 Urine Culture Stat Urine Microscopic Stat Discontinued Medications Aspirin (Aspirin 81 Mg Chew Tab) 324 mg PO NOW ONE Stop: 09/26/23 16:09 Last Admin: 09/26/23 17:37 Dose: Not Given Documented By: MYLES Acetaminophen (Ofirmev) 1,000 mg in 100 mls @ 400 mls/hr IV NOW ONE Stop: 09/26/23 18:25 Last Infusion: 09/26/23 18:41 Dose: Infused Documented By: Admin: 09/26/23 18:18 Dose: 400 mls/hr Documented By: RIYA Ketorolac Tromethamine (Ketorolac 30 Mg/Ml Vial) 30 mg IV NOW ONE Stop: 09/26/23 18:12 Last Admin: 09/26/23 18:18 Dose: 30 mg Documented By: RIYA Vital Signs Vital signs: Vital Signs - 8 hr 09/26/23 17:00 09/26/23 17:00 09/26/23 17:30 Pulse Rate 72 70 Respiratory Rate 18 17 Blood Pressure 162/88 H Pulse Oximetry 98 93 Oxygen Delivery Method Room Air 09/26/23 17:30 09/26/23 17:52 09/26/23 17:52 Pulse Rate 78 Respiratory Rate 16 Blood Pressure 148/82 H 151/98 H Pulse Oximetry 98 Oxygen Delivery Method 09/26/23 18:00 09/26/23 18:00 09/26/23 18:30 Pulse Rate 70 Respiratory Rate 17 Blood Pressure 141/84 H 131/83 Pulse Oximetry 97 Oxygen Delivery Method 09/26/23 18:30 09/26/23 19:00 09/26/23 19:00 Pulse Rate 74 67 Respiratory Rate 21 15 Blood Pressure 139/85 Pulse Oximetry 97 98 Oxygen Delivery Method Room Air Room Air MDM - Chest Pain Lab Data Attestation: I reviewed the patient's lab results. 09/26/23 16:25 09/26/23 16:25 Labs: Lab Results 09/26/23 09/26/23 Range/Units 16:25 17:45 WBC 10.4 (4.5-11.0) X10^3/uL RBC 4.58 (4.0-5.2) X10^6/uL Hgb 14.6 (12.0-16.0) g/dL Hct 40.8 (36-46) % MCV 89.0 (80-100) fL MCH 31.8 (26-34) PG MCHC 35.8 (30-36) % RDW 12.8 (11.6-14.8) % Plt Count 192 (150-400) X10^3/uL Neut % (Auto) 70.0 (50-75) % Lymph % (Auto) 23.1 L (25-40) % [place] % (Auto) 5.0 (3-14) % Eos % (Auto) 1.5 L (2-4) % Baso % (Auto) 0.4 (0-2) % Neut # (Auto) 7300 H (5545-6972) /uL Lymph # (Auto) 2400 (4024-1047) /uL [place] # (Auto) 500 (0-900) /uL Eos # (Auto) 200 (0-450) /uL Baso # (Auto) 0 (0-100) /uL PT 12.1 (9.4-12.5) SECONDS INR 1.1 (0.9-1.3) APTT 36 (25.1-36.5) SECONDS Sodium 139 (137-145) mmol/L Potassium 3.5 (3.4-5.1) mmol/L Chloride 107 (98-107) mmol/L Carbon Dioxide 23 (22-32) mmol/L BUN 14 (7-17) mg/dL Creatinine 0.66 (0.52-1.04) mg/dL Estimated GFR > 60 (>60) mL/min BUN/Creatinine Ratio 21.2 (6-22) Glucose 99 (70-100) mg/dL Calcium 9.7 (8.4-10.2) mg/dL Magnesium 1.9 (1.6-2.3) mg/dL Total Bilirubin 0.5 (0.2-1.3) mg/dL AST 37 H (14-36) IU/L ALT 48 H (<35) IU/L Alkaline Phosphatase 81 (38-126) U/L Total Creatine Kinase 85 (30-135) U/L Troponin I < 0.012 (0.01-0.034) ng/mL Total Protein 8.1 (6.3-8.2) g/dL Albumin 5.1 H (3.5-5.0) g/dL Globulin 3.0 (1.7-4.1) g/dL Albumin/Globulin Ratio 1.7 (1.0-2.8) Lipase 76 (23-300) U/L Urine RBC None seen (0-5/HPF) Urine WBC 1-5/hpf (0-5/HPF) Ur Squamous Epith Cells 5-10 /hpf H (0-5/HPF) Urine Bacteria Many (>30) H (None) Ur Culture Indicated? Specimen cultured Vol Urine Centrifuged 10ml (spun) Point of Care Testing Test Results Negative Urine Dip Bedside Urine Glucose Negative Bedside Urine Bilirubin - Negative Bedside Urine Ketone - Negative Urine Specific [place] 1.020 Bedside Urine Occult Blood +++ Bedside Urine pH 5.5 Bedside Urine Protein - Negative Bedside Urine Urobilinogen - Negative Bedside Urine Nitrite + Positive Bedside Urine Leukocytes + 70 Esterase Imaging Data Chest x-ray: Radiologist's Impression: PROCEDURE: XR CHEST 1V INDICATIONS: chest pain TECHNIQUE: One view of the chest was acquired. COMPARISON: None. FINDINGS: Surgical changes and devices: None. Lungs and pleura: On this semiupright portable chest examination, no large pneumothorax or large pleural effusions are seen. No focal infiltrates are seen. Mediastinum: Mediastinal contours appear normal. Heart size is normal. Bones and chest wall: No suspicious bony lesions. Overlying soft tissues appear unremarkable. IMPRESSION: No acute cardiopulmonary abnormality is seen. ECG Data Attestation: I personally reviewed and interpreted this ECG as follows: Interpretation: Sinus rhythm Ventricular rate is 76 Normal axis Normal QRS Normal QTC No ST T wave changes MDM Narrative Medical decision making narrative: Patient stated that she was feeling somewhat better after medications here in the ER. Her presenting symptoms not consistent with ACS, meningitis, heart failure. Advised that the patient take her blood pressure at home on a daily basis until she follows up with her primary care doctor in a couple weeks. At that point she may need to be on blood pressure medications. No indication to start those today. Discharge patient home with return precautions. She expressed understanding and agreement. Discharge Plan Departure Patient Disposition: Home Clinical Impression: Headache, Hypertension Instructions: High Blood Pressure Activity Restrictions/Additional Instructions: I do recommend that you keep all of your scheduled medical appointments. Also recommend that you take your blood pressure at home on a regular basis and record these results of the you can talk with your primary doctor about potentially needing any medications. Return to the emergency department for new or worsening symptoms. Prescriptions: No Action No Known Home Medications Referrals: Miscellaneous,DoctorMD [Primary Care Provider] - Stand Alone Forms: Patient Portal/API
[2023-09-26] MEDS: KETOROLAC 30 MG/ML VIAL IV (18:18)
[2023-09-26] MEDS: ACETAMINOPHEN IV 1,000 MG/100 ML VIAL 400 MG IV (18:18)
[2023-09-26 18:26] LABS: Bacteria Urine Many (>30); Culture Indicated Urine Specimen Cultured; RBC Urine None Seen (0-5/HPF); Squamous Epithelial Cell Urine 5-10 /HPF (0-5/HPF); Urine Volume 10mL (spun); WBC Urine 1-5/HPF (0-5/HPF)
== END 2023-09-26 19:28 | disposition home or self-care (01) ==
PROVIDERS: Emergency Medicine; Emergency Provider Emergency Medicine
DX: R51.9 Headache, unspecified (principal); I10 Essential (primary) hypertension; F17.210 Nicotine dependence, cigarettes, uncomplicated
CPT/HCPCS: 36415; 71045; 80053; 81003; 81015; 81025; 82550; 83690; 83735; 84484; 85025; 85610; 85730; 87077; 87086; 87186; 93005; 96365; 96375; 99284; J0136; J1885